=== PATIENT | female | born 1975 ===

== ENCOUNTER 2017-06-21 12:17 | Inpatient (IN) | payer OTHER ==
[~2017-06-21] VITALS: Ht 165.1 cm; Wt 90.7 kg
[2017-07-04] MEDS ORDERED: PRENATAL TABLE1 EAC1 PO (22:27)
[2017-07-04] MEDS ORDERED: IRON18 MG PO (22:29)
[2017-07-04] MEDS ORDERED: ZANTAC150 M3 PO (22:29)
== END 2017-07-07 13:55 | DRG 775 ==
LOC: LDR → SURG-SUITE 07-04 21:24 → LDR 07-04 21:24 → SURG-SUITE 07-05 14:32 → LDR 07-11 12:16
PROC: 10E0XZZ Delivery of Products of Conception, External Approach (ICD-10-PCS; principal; 2017-07-05)
PROC: 0KQM0ZZ Repair Perineum Muscle, Open Approach (ICD-10-PCS; 2017-07-05)
PROC: 0W8NXZZ Division of Female Perineum, External Approach (ICD-10-PCS; 2017-07-05)
PROC: 4A033R1 Measurement of Arterial Saturation, Peripheral, Percutaneous Approach (ICD-10-PCS; 2017-07-05)
PROC: 4A1HXCZ Monitoring of Products of Conception, Cardiac Rate, External Approach (ICD-10-PCS; 2017-07-05)
DX: O70.1 Second degree perineal laceration during delivery (principal); Z37.0 Single live birth; O99.02 Anemia complicating childbirth; Z3A.39 39 weeks gestation of pregnancy

== ENCOUNTER 2017-06-21 14:13 | Outpatient (CLI) | payer OTHER | END 2017-06-21 16:02 | disposition home or self-care (01) | LOC: NST 14:13 | DX: Z34.83 Encounter for supervision of other normal pregnancy, third trimester (principal) ==